=== PATIENT | female | born 1995 | race Hispanic/Latino ===

== ENCOUNTER 2018-08-31 11:17 | Day surgery (SDC) | payer OTHER ==
[~2018-08-31] VITALS: Ht 167.6 cm; Wt 85.0 kg
[2018-08-31] VITALS (9 sets, daily range): BP systolic 92–115; BP diastolic 50–83
[~2018-08-31 11:17] MED LIST: BIRTH CONTROL; ESCI10TA PO; OMEP20CA10 PO
[2018-08-31] MEDS ORDERED: SODIUM CHLORIDE 0.9% 1000ML 1,000 ML IV ONE (12:05)
[2018-08-31] MEDS ORDERED: PROPOFOL 10 MG/ML 20ML VIAL IV ONE (12:42)
[2018-08-31] MEDS ORDERED: LIDOCAINE HCL 1% 20 ML VIAL ONE (12:42)
[2018-08-31] MEDS ORDERED: SUCCINYLCHOLINE CHLORIDE 20 MG/ML 10 ML VIAL ONE (12:43)
--- NOTE | 2018-08-31 13:20 | NUR ---
PATIENT CUGHING, VOMITING SMALL AMOUNT OF CLEAR EMESIS WITH SPECKS OF BROWN PARTICLES. ZOFRAN GIVEN AT 13 Addendum: 08/31/18 at 1359 by FLORENCIA RUCKER RN ZOFRAN 4MG IV GIVEN AT 1330, FOR VOMITING
[2018-08-31] MEDS ORDERED: ONDANSETRON HCL MDV 20ML 2 MG/ML VIAL ONE (13:23)
== END 2018-08-31 13:40 | disposition home or self-care (01) ==
LOC: ENDO 11:17 → DAH 11:17 → ENDO 13:40
PROVIDERS: ATTEND Internal Medicine Gastroenterology
DX: D13.1 Benign neoplasm of stomach (principal); K29.50 Unspecified chronic gastritis without bleeding; K21.9 Gastro-esophageal reflux disease without esophagitis; K31.89 Other diseases of stomach and duodenum; F15.90 Other stimulant use, unspecified, uncomplicated; Z88.0 Allergy status to penicillin; Z79.899 Other long term (current) drug therapy; Z83.3 Family history of diabetes mellitus; Z82.49 Family history of ischemic heart disease and other diseases of the circulatory system
CPT/HCPCS: 36415; 43239; 43251; 84703; 88305; J0330; J2704; J7030